=== PATIENT | female | born 1960 | race Caucasian/White ===

== ENCOUNTER 2017-08-20 08:02 | Inpatient (IN) | payer SELFPAY ==
[2017-08-20] MEDS ORDERED: NS 0.9% 1000 ML*IV.FLUID IV ONE (08:18)
[2017-08-20] MEDS ORDERED: cefTRIAXone(*) 1 GM in NS 0.9% 50 ML* 50 ML IVPB ONE (08:25)
[2017-08-20] MEDS ORDERED: Azithromycin IV(*) 500 MG in NS 0.9% 250 ML* 250 ML IVPB ONE (08:25)
[2017-08-20] MEDS: Albuterol/Ipratropium NEB.SOL* Albuterol 2.5 MG/Ipratropium 0.5 MG 3 ML INH ONE ×2 (08:39→08:46)
--- NOTE | 2017-08-20 08:58 | RAD ---
Indication: Cough, shortness of breath, fever. Tobacco use. Comparison: January 20, 2014 Technique: Upright AP 0849 hours Report: Elevated lung volumes. Patchy bilateral alveolar opacities including at the anterior segment of the RIGHT upper lobe approximating the minor fissure and at the bilateral lung bases. Negative for pleural effusion or pneumothorax. The heart, pulmonary vasculature, and mediastinal contours are unremarkable. IMPRESSION: The constellation of findings given the clinical context is most consistent with bronchopneumonia.
[2017-08-20 09:04] LABS: ABS Basophils 0.1 10^3/ul (0-0.2); ABS Eosinophils 0.1 10^3/ul (0-0.6); ABS Lymphocytes 1.3 10^3/ul (1.0-4.8); ABS Monocytes 1.3 10^3/ul (0-0.8); ABS Neutrophils 8.4 10^3/ul (1.5-7.7); ABS Nucleated RBC 0 10^3/ul; Eosinophil % 0.5 % (0-6); Hematocrit 35 % (35-47); Hemoglobin 11.6 g/dl (12.0-16.0); Lymphocyte % 11.8 % (25-47); Mean Corpuscular HGB Conc 33 g/dl (31-36); Mean Corpuscular Hemoglobin 28 pg (27-31); Mean Corpuscular Volume 84 fL (80-97); Mean Platelet Volume 8.5 um3 (7.4-10.4); Nucleated Red Blood Cells % 0.1; Platelet Count 320 10^3/ul (150-450); Red Blood Count 4.15 10^6/ul (4.0-5.4); Red Cell Distribution Width 14 % (10.5-15); White Blood Count 11.2 10^3/ul (3.5-10.8)
[2017-08-20 09:14] LABS: INR 1.07 (0.77-1.02)
[2017-08-20 09:19] LABS: EGFR Non-African American 80.6 (>60)
[2017-08-20] MEDS ORDERED: Aspirin 81 mg CHEW TAB* 81 MG TAB.CHEW PO ONE (09:26)
[2017-08-20] MEDS ORDERED: cefTRIAXone 1000 MG SYRINGE IVPB ONCE (in NaCl) IVPB ONE ×2 (10:00)
[2017-08-20] MEDS ORDERED: Iohexol 350* (CONTRAST) 500 ML MDV IV ONE (10:39)
[2017-08-20] MEDS ORDERED: traMADol TAB* 50 MG PO PRN (10:46)
[2017-08-20] MEDS ORDERED: Nicotine Inhaler* 10 MG AMP INH PRN (10:54)
[2017-08-20] MEDS ORDERED: Mouth Piece, Nicotine* 1 EACH CARTRIDGE INH PRN (10:54)
[2017-08-20 10:59] LABS: Urine Appearance Clear; Urine Blood Negative (Negative); Urine Color Yellow; Urine Ketones Negative (Negative); Urine Protein Negative (Negative); Urine Specific Gravity 1.004 (1.010-1.030); Urine Urobilinogen Negative (Negative)
--- NOTE | 2017-08-20 11:52 | ED ---
Nella Stock Gabriel, scribed for Danny Vincent MD on 08/20/17 at 0821 . Influenza-Like Illness - HPI Summary HPI Summary: This patient is a 57 year old F presenting to [facility] with a chief complaint of a flu like illness since 08-14-17. The patient rates the pain 8/10 in severity. Patient reports SOB, cough, chills, fever, myalgia, chest heaviness. Pt denies sore throat, ABD pain, v/d, edema, and wheezing. Pt states she had a stomach flu with diarrhea at first but now it has gotten into her lungs. - History of Current Complaint Chief Complaint: EDFluSymptoms Time Seen by Provider: 08/20/17 08:12 Hx Obtained From: Patient Onset/Duration: Lasting Weeks - 1, Still Present Severity: Moderate Associated Signs & Symptoms: Negative - sore throat, ABD pain, v/d, edema, and wheezing., Fever, F/C, Myalgia, Cough - Allergy/Home Medications Allergies/Adverse Reactions: Allergies Allergy/AdvReac Type Severity Reaction Status Date / Time ciprofloxacin [From Cipro] Allergy Hives Verified 08/20/17 08:18 erythromycin base Allergy Hives Verified 08/20/17 08:18 CILLINS Allergy Unknown Unknown Uncoded 05/09/15 11:28 Reaction Details Home Medications: Home Medications NK [No Home Medications Reported] 08/20/17 [History Confirmed 08/20/17] PMH/Surg Hx/FS Hx/Imm Hx Endocrine/Hematology History: Denies: Hx Diabetes, Hx Thyroid Disease Cardiovascular History: Reports: Hx Rheumatic Fever Denies: Hx Hypertension Respiratory History: Reports: Hx Pneumonia Denies: Hx Asthma, Hx Chronic Obstructive Pulmonary Disease (COPD) GI History: Denies: Hx Ulcer Neurological History: Reports: Hx Migraine - Surgical History Surgery Procedure, Year, and Place: TUBAL LIGATION, RIGHT GROIN 4 LYMPH NODES REMOVED Infectious Disease History: No Infectious Disease History: Denies: Hx Hepatitis, Hx Human Immunodeficiency Virus (HIV), History Other Infectious Disease, Traveled Outside the [place] in Last 30 Days - Family History Known Family History: Positive: Cardiac Disease, Diabetes Family History: cancer - Social History Alcohol Use: None Substance Use Type: Reports: None Smoking Status (MU): Current Every Day Smoker Type: Cigarettes Amount Used/How Often: 1/2 ppd Length of Time of Smoking/Using Tobacco: 20 Have You Smoked in the Last Year: Yes Review of Systems Positive: Fever, Chills Negative: Sore Throat Positive: Chest Pain - heaviness Respiratory: Negative - wheeze Positive: Shortness Of Breath, Cough Negative: Abdominal Pain, Vomiting, Diarrhea Negative: Edema All Other Systems Reviewed And Are Negative: Yes Physical Exam - Summary Physical Exam Summary: General: mild respiratory distress Skin: warm, color reflects adequate perfusion, dry Head: normal Eyes: EOMI, ABIGAIL ENT: positive rhinorrhea Neck: supple, nontender Respiratory: CTA, breath sounds present, lungs are clear Cardiovascular: RRR Abdomen: soft, nontender Bowel: present Musculoskeletal: normal, strength/ROM intact Neurological: normal, sensory/motor intact, A&O x3 Psychological: affect/mood appropriate Triage Information Reviewed: Yes Vital Signs On Initial Exam: Initial Vitals Temp Pulse Resp BP Pulse Ox 97.8 F 77 24 100/59 95 08/20/17 08:03 08/20/17 08:03 08/20/17 08:03 08/20/17 08:03 08/20/17 08:03 Vital Signs Reviewed: Yes Diagnostics - Vital Signs Vital Signs Temp Pulse Resp BP Pulse Ox 08/20/17 08:03 97.8 F 77 24 100/59 95 - Laboratory Lab Results: Lab Results 08/20/17 08/20/17 08/20/17 Range/Units 08:30 08:30 08:30 WBC 11.2 H (3.5-10.8) 10^3/ul RBC 4.15 (4.0-5.4) 10^6/ul Hgb 11.6 L (12.0-16.0) g/dl Hct 35 (35-47) % MCV 84 (80-97) fL MCH 28 (27-31) pg MCHC 33 (31-36) g/dl RDW 14 (10.5-15) % Plt Count 320 (150-450) 10^3/ul MPV 8.5 (7.4-10.4) um3 Neut % (Auto) 75.5 (38-83) % Lymph % (Auto) 11.8 L (25-47) % [place] % (Auto) 11.6 H (0-7) % Eos % (Auto) 0.5 (0-6) % Baso % (Auto) 0.6 (0-2) % Absolute Neuts (auto) 8.4 H (1.5-7.7) 10^3/ul Absolute Lymphs (auto) 1.3 (1.0-4.8) 10^3/ul Absolute Monos (auto) 1.3 H (0-0.8) 10^3/ul Absolute Eos (auto) 0.1 (0-0.6) 10^3/ul Absolute Basos (auto) 0.1 (0-0.2) 10^3/ul Absolute Nucleated RBC 0 10^3/ul Nucleated RBC % 0.1 INR (Anticoag Therapy) 1.07 H (0.77-1.02) APTT 27.8 (26.0-36.3) seconds D-Dimer, Quantitative 525 H (Less Than 230) ng/mL Sodium 133 L (139-145) mmol/L Potassium 3.2 L (3.5-5.0) mmol/L Chloride 100 L (101-111) mmol/L Carbon Dioxide 21 L (22-32) mmol/L Anion Gap 12 H (2-11) mmol/L BUN 9 (6-24) mg/dL Creatinine 0.74 (0.51-0.95) mg/dL Est GFR ( Amer) 103.7 (>60) Est GFR (Non-Af Amer) 80.6 (>60) BUN/Creatinine Ratio 12.2 (8-20) Glucose 142 H (70-100) mg/dL Hemoglobin A1c (4.0-5.6) % Lactic Acid (0.5-2.0) mmol/L Calcium 8.8 (8.6-10.3) mg/dL Total Bilirubin 0.80 (0.2-1.0) mg/dL AST 18 (13-39) U/L ALT 14 (7-52) U/L Alkaline Phosphatase 68 (34-104) U/L Total Creatine Kinase 263 H (10-223) U/L Troponin I 0.10 H* (<0.04) ng/mL C-Reactive Protein 165.15 H (< 5.00) mg/L B-Natriuretic Peptide ( - 100) pg/mL Total Protein 6.7 (6.4-8.9) g/dL Albumin 3.5 (3.2-5.2) g/dL Globulin 3.2 (2-4) g/dL Albumin/Globulin Ratio 1.1 (1-3) Procalcitonin (<0.6) ng/mL Urine Color Urine Appearance Urine pH (5-9) Ur Specific [place] (1.010-1.030) Urine Protein (Negative) Urine Ketones (Negative) Urine Blood (Negative) Urine Nitrate (Negative) Urine Bilirubin (Negative) Urine Urobilinogen (Negative) Ur Leukocyte Esterase (Negative) Urine Glucose (Negative) Influenza A (Rapid) (Negative) Influenza B (Rapid) (Negative) 08/20/17 08/20/17 08/20/17 Range/Units 08:30 08:30 08:30 WBC (3.5-10.8) 10^3/ul RBC (4.0-5.4) 10^6/ul Hgb (12.0-16.0) g/dl Hct (35-47) % MCV (80-97) fL MCH (27-31) pg MCHC (31-36) g/dl RDW (10.5-15) % Plt Count (150-450) 10^3/ul MPV (7.4-10.4) um3 Neut % (Auto) (38-83) % Lymph % (Auto) (25-47) % [place] % (Auto) (0-7) % Eos % (Auto) (0-6) % Baso % (Auto) (0-2) % Absolute Neuts (auto) (1.5-7.7) 10^3/ul Absolute Lymphs (auto) (1.0-4.8) 10^3/ul Absolute Monos (auto) (0-0.8) 10^3/ul Absolute Eos (auto) (0-0.6) 10^3/ul Absolute Basos (auto) (0-0.2) 10^3/ul Absolute Nucleated RBC 10^3/ul Nucleated RBC % INR (Anticoag Therapy) (0.77-1.02) APTT (26.0-36.3) seconds D-Dimer, Quantitative (Less Than 230) ng/mL Sodium (139-145) mmol/L Potassium (3.5-5.0) mmol/L Chloride (101-111) mmol/L Carbon Dioxide (22-32) mmol/L Anion Gap (2-11) mmol/L BUN (6-24) mg/dL Creatinine (0.51-0.95) mg/dL Est GFR ( Amer) (>60) Est GFR (Non-Af Amer) (>60) BUN/Creatinine Ratio (8-20) Glucose (70-100) mg/dL Hemoglobin A1c (4.0-5.6) % Lactic Acid 0.9 (0.5-2.0) mmol/L Calcium (8.6-10.3) mg/dL Total Bilirubin (0.2-1.0) mg/dL AST (13-39) U/L ALT (7-52) U/L Alkaline Phosphatase (34-104) U/L Total Creatine Kinase (10-223) U/L Troponin I (<0.04) ng/mL C-Reactive Protein (< 5.00) mg/L B-Natriuretic Peptide 201 H ( - 100) pg/mL Total Protein (6.4-8.9) g/dL Albumin (3.2-5.2) g/dL Globulin (2-4) g/dL Albumin/Globulin Ratio (1-3) Procalcitonin 0.1 (<0.6) ng/mL Urine Color Urine Appearance Urine pH (5-9) Ur Specific [place] (1.010-1.030) Urine Protein (Negative) Urine Ketones (Negative) Urine Blood (Negative) Urine Nitrate (Negative) Urine Bilirubin (Negative) Urine Urobilinogen (Negative) Ur Leukocyte Esterase (Negative) Urine Glucose (Negative) Influenza A (Rapid) (Negative) Influenza B (Rapid) (Negative) 08/20/17 08/20/17 08/20/17 Range/Units 08:30 09:02 10:40 WBC (3.5-10.8) 10^3/ul RBC (4.0-5.4) 10^6/ul Hgb (12.0-16.0) g/dl Hct (35-47) % MCV (80-97) fL MCH (27-31) pg MCHC (31-36) g/dl RDW (10.5-15) % Plt Count (150-450) 10^3/ul MPV (7.4-10.4) um3 Neut % (Auto) (38-83) % Lymph % (Auto) (25-47) % [place] % (Auto) (0-7) % Eos % (Auto) (0-6) % Baso % (Auto) (0-2) % Absolute Neuts (auto) (1.5-7.7) 10^3/ul Absolute Lymphs (auto) (1.0-4.8) 10^3/ul Absolute Monos (auto) (0-0.8) 10^3/ul Absolute Eos (auto) (0-0.6) 10^3/ul Absolute Basos (auto) (0-0.2) 10^3/ul Absolute Nucleated RBC 10^3/ul Nucleated RBC % INR (Anticoag Therapy) (0.77-1.02) APTT (26.0-36.3) seconds D-Dimer, Quantitative (Less Than 230) ng/mL Sodium (139-145) mmol/L Potassium (3.5-5.0) mmol/L Chloride (101-111) mmol/L Carbon Dioxide (22-32) mmol/L Anion Gap (2-11) mmol/L BUN (6-24) mg/dL Creatinine (0.51-0.95) mg/dL Est GFR ( Amer) (>60) Est GFR (Non-Af Amer) (>60) BUN/Creatinine Ratio (8-20) Glucose (70-100) mg/dL Hemoglobin A1c 6.0 H (4.0-5.6) % Lactic Acid (0.5-2.0) mmol/L Calcium (8.6-10.3) mg/dL Total Bilirubin (0.2-1.0) mg/dL AST (13-39) U/L ALT (7-52) U/L Alkaline Phosphatase (34-104) U/L Total Creatine Kinase (10-223) U/L Troponin I (<0.04) ng/mL C-Reactive Protein (< 5.00) mg/L B-Natriuretic Peptide ( - 100) pg/mL Total Protein (6.4-8.9) g/dL Albumin (3.2-5.2) g/dL Globulin (2-4) g/dL Albumin/Globulin Ratio (1-3) Procalcitonin (<0.6) ng/mL Urine Color Yellow Urine Appearance Clear Urine pH 5.0 (5-9) Ur Specific [place] 1.004 L (1.010-1.030) Urine Protein Negative (Negative) Urine Ketones Negative (Negative) Urine Blood Negative (Negative) Urine Nitrate Negative (Negative) Urine Bilirubin Negative (Negative) Urine Urobilinogen Negative (Negative) Ur Leukocyte Esterase Negative (Negative) Urine Glucose Negative (Negative) Influenza A (Rapid) Negative (Negative) Influenza B (Rapid) Negative (Negative) Result Diagrams: 08/20/17 08:30 08/20/17 08:30 Lab Statement: Any lab studies that have been ordered have been reviewed, and results considered in the medical decision making process. - Radiology CXR Radiology Interpretation Completed By: Radiologist - The constellation of findings given the clinical context is most consistent with bronchopneumonia. ED physician has reviewed this radiology report. - EKG 0900 Cardiac Rate: Bradycardia EKG Rhythm: Sinus Rhythm - at 73 bpm EKG Interpretation: minimal ST elevations in the anterior leads that are concave Flu Symptom Course/Dx - Course Course Of Treatment: ADMIT HOSPITALIST Assessment/Plan: Medications reviewed. Allergies noted. - Diagnoses Provider Diagnoses: Pneumonia, Elevated troponin - Physician Notifications Discussed Care Of Patient With: Jane Orta Time Discussed With Above Provider: 09:42 Instructed by Provider To: Admit As Inpatient Discharge - Sign-Out/Discharge Documenting (check all that apply): Discharge - ADMIT HOSPITALIST - Discharge Plan Condition: Stable Disposition: ADMITTED TO [facility] - Billing Disposition and Condition Condition: STABLE Disposition: [facility] [place] The documentation as recorded by the Nella buitrago Gabriel accurately reflects the service I personally performed and the decisions made by , Danny Vincent MD.
--- NOTE | 2017-08-20 12:41 | RAD ---
HISTORY: Cough, pneumonia, evaluate for PE COMPARISONS: None TECHNIQUE: Multiple contiguous axial CT scans of the chest were obtained without intravenous contrast. Coronal and sagittal multiplanar reformations are also submitted for review. FINDINGS: NECK AND THYROID: The lower neck and thyroid are unremarkable. CHEST WALL: There is no lower cervical, axillary, or supraclavicular lymphadenopathy by size criteria. HEART AND PERICARDIUM: The heart is unremarkable. AORTA AND PULMONARY VASCULATURE: There is no pulmonary arterial filling defect to suggest pulmonary embolism. There is no linear filling defect within the aorta to suggest aortic dissection. MEDIASTINUM: There is an enlarged subcarinal lymph node measuring up to 2.4 cm in short axis. KASIA: There are enlarged bilateral hilar lymph nodes measuring up to 1.8 cm in short axis. AIRWAY AND ESOPHAGUS: The airway is unremarkable, without endobronchial filling defect. The esophagus is grossly normal. LUNG PARENCHYMA: There is biapical centrilobular emphysematous change. There is multifocal centrilobular nodularity within all lobes. There is no focal consolidation of the left upper lobe PLEURA: There are small bilateral pleural effusions. UPPER ABDOMEN: The upper abdomen is unremarkable. BONES AND SOFT TISSUES: Degenerative changes are noted OTHER: None. IMPRESSION: 1. NO PULMONARY ARTERIAL FILLING DEFECT TO SUGGEST PULMONARY EMBOLISM. 2. THERE IS MULTIFOCAL CONSOLIDATION OF THE LEFT UPPER LOBE WITH MULTIFOCAL CENTRILOBULAR NODULARITY THROUGHOUT BOTH LUNGS, SUGGESTIVE OF AN INFLAMMATORY OR INFECTIOUS PROCESS. AIRWAY SPREAD OF NEOPLASM IS ALSO WITHIN THE DIFFERENTIAL. RECOMMEND FOLLOW-UP UNTIL RESOLUTION TO EXCLUDE UNDERLYING PULMONARY PARENCHYMAL PATHOLOGY. 3. HILAR AND MEDIASTINAL LYMPHADENOPATHY. 4. SMALL BILATERAL PLEURAL EFFUSIONS. 5. EMPHYSEMA
[2017-08-20] MEDS: NS 0.9% 1000 ML* 1,000 ML IV SCH ×2 (13:06→23:56)
[2017-08-20] MEDS: Heparin VIAL(*) 5000 UNITS/ML VIAL (FIVE THOUSAND) SUBCUT SCH ×2 (13:06→22:11)
[2017-08-20] MEDS: Acetaminophen TAB* 325 MG PO PRN ×2 (13:59→22:11)
--- NOTE | 2017-08-20 14:03 | HP ---
HISTORY AND PHYSICAL: DATE OF ADMISSION: 08/20/17 PRIMARY CARE PROVIDER: None. CHIEF COMPLAINT: Shortness of breath. HISTORY OF PRESENT ILLNESS: Ms. Coffey is a 57-year-old female who has no past medical history as she has not seen a provider in quite sometime, who presents to the emergency room with complaints of shortness of breath. The patient states that she first developed an illness on 08/09/17. At that point, she developed what she described as a flu-like illness with body aches and diarrhea. She also complained of fevers and chills with that. She states that those all resolved within 3 days. On 08/14/17, she then began to develop cough and shortness of breath. She has been bringing up very discolored sputum. Over the last 6 days, she has had progressive shortness of breath. Despite feeling unwell with the shortness of breath, she did manage to work for the last 7 days in [employer] at [employer]. She ultimately presented today as things were not getting any better. She does state that she has had a couple of days of feeling quite warm. PAST MEDICAL HISTORY: None. PAST SURGICAL HISTORY: 1. Tubal ligation. 2. Lymph node removal from the pelvis. MEDICATIONS: None. ALLERGIES: CIPRO, PENICILLIN and ERYTHROMYCIN. FAMILY HISTORY: Mom is from complications of diabetes. Dad has a history of pancreatic cancer. SOCIAL HISTORY: The patient is a current smoker of one-half pack per day for approximately the last 25 years. She does state that she has not smoked in last 5 to 6 days. She indicates Artem Cotton who is her boyfriend is her healthcare proxy. REVIEW OF SYSTEMS: A complete 11-system review of systems is obtained. Pertinent positives and negatives are as per HPI and in addition, the patient does complain of chest discomfort, most notably with coughing. She also states that she has some back discomfort that again worsens with cough. She also has felt some lightheadedness with coughing. The rest of the review of systems was negative. PHYSICAL EXAMINATION GENERAL: The patient is a well-developed middle aged female seen sitting up in the stretcher, appearing mildly ill, but in no acute distress. VITAL SIGNS: Blood pressure 107/64, pulse 69, respirations 16, temp 97.8, O2 sat 98% on room air. HEENT: Pupils are equal and round. Extraocular muscles are intact. Oropharynx is clear. Oral mucosa is moist. There is no submandibular, cervical or supraclavicular adenopathy. Thyroid is not enlarged. No thyroid nodules are noted. PULMONARY: Breath sounds are diminished in all lung tucker. There are a few crackles to the right base. CARDIAC: Normal S1, S2. Regular rate and rhythm. I do not appreciate any murmurs. ABDOMEN: Bowel sounds present. Abdomen is soft, nontender, nondistended. MUSCULOSKELETAL: There is no cyanosis or clubbing of the digits. There is full active range of motion of all 4 extremities. SKIN: Warm and dry. There are no rashes. NEUROLOGIC: Cranial nerves II through XII are grossly intact. Sensation is intact to light touch throughout. Strength is 5/5 and symmetric in both upper and lower extremities bilaterally. PSYCH: The patient is alert. She is oriented x3. Affect appears appropriate. LABORATORY DATA: WBC 11.2, hemoglobin 11.6, hematocrit 35, platelets 320,000. INR 1.07, D-dimer 525. Sodium 133, potassium 3.2, chloride 100, CO2 of 21, BUN 9, creatinine 0.74, glucose 142, lactic acid 0.9, calcium 8.8, bilirubin 0.8 , AST 18, ALT 14, alk phos 68. CPK 263. Troponin 0.1. CRP 165.15, BNP 201, procalcitonin 0.1. Influenza A and B negative. EKG reveals normal sinus rhythm with minimal ST elevation in the anterior leads. Chest x-ray: The constellation of findings of patchy bilateral alveolar opacities including at the anterior segment of the right upper lobe approximating the minor fissure and at the bilateral lung bases is most consistent with bronchopneumonia. ASSESSMENT AND PLAN: Ms. Coffey is a 57-year-old female who has no past medical history outside of ongoing tobacco abuse who presents to the emergency room with complaints of progressive shortness of breath, cough and sputum production, is being admitted for treatment of a community acquired pneumonia. 1. Community acquired pneumonia: Community acquired pneumonia seems like the most likely diagnosis at this point; however, it is possible this could represent a post influenza pneumonia given her complaints of illness approximately 1 week prior to the onset of these symptoms. The patient will have a sputum culture obtained. She will also have urine sent for Strep pneumoniae and Legionella antigens. She will continue on ceftriaxone and azithromycin that has been initiated by the ER provider. Of note, the patient does have a reported allergy to ERYTHROMYCIN; however, she appears to have tolerated the azithromycin without any issues. 2. Elevated troponin: The patient does complain of chest pain. This is mostly with coughing. I do not believe that this likely represents an acute coronary syndrome; however, followup troponin will be obtained at 11:30 this morning. Followup EKG will also be obtained. I suspect this more likely represents demand ischemia. She will benefit from an echocardiogram and stress test in the near future. Perhaps this can be considered once her insurance is in place. An additional potential cause could be pulmonary embolism especially given her elevated D-dimer. A CTA of the chest has been ordered. 3. Hyponatremia and hypokalemia: I suspect this is secondary to volume depletion from being ill over the last couple of weeks. She will receive normal saline at 100 mL/hour. Followup BMP will be obtained tomorrow morning. 4. Tobacco abuse: The patient has not smoked for the last 5 to 6 days. At this point, I will prescribe a nicotine inhaler to be used for cravings. We will continue to encourage smoking cessation now that she has gone several days without smoking, this may be a good time for her to stop. 5. DVT prophylaxis: According to the Adult Thrombosis Prophylaxis Risk Factor Assessment Guide, the patient has a total risk factor score of 2 making her moderate risk, heparin 5000 units subcutaneous q.8 hours will be utilized. 6. Code status is full. Again, the patient indicates that her boyfriend Artem Cotton is her healthcare proxy. TIME SPENT: Sixty five minutes were spent admitting this patient. [id number]/[facility] #: [id number] MISSY
[2017-08-21 05:46] LABS: Hematocrit 30 % (35-47); Hemoglobin 10.1 g/dl (12.0-16.0); Mean Corpuscular HGB Conc 34 g/dl (31-36); Mean Corpuscular Hemoglobin 28 pg (27-31); Mean Corpuscular Volume 84 fL (80-97); Mean Platelet Volume 8.4 um3 (7.4-10.4); Platelet Count 278 10^3/ul (150-450); Red Blood Count 3.56 10^6/ul (4.0-5.4); Red Cell Distribution Width 14 % (10.5-15); White Blood Count 8.7 10^3/ul (3.5-10.8)
[2017-08-21 06:04] LABS: EGFR Non-African American 83.2 (>60)
[2017-08-21] MEDS: Heparin VIAL(*) 5000 UNITS/ML VIAL (FIVE THOUSAND) SUBCUT SCH ×3 (06:09→21:34)
[2017-08-21] MEDS ORDERED: cefTRIAXone VIAL(*) 1,000 MG VIAL IVPB SCH (10:00)
[2017-08-21] MEDS ORDERED: NS 0.9% 250 ML* 250 ML ONE (10:14)
[2017-08-21] MEDS: NS 0.9% 1000 ML* 1,000 ML IV SCH ×2 (10:20→21:39)
[2017-08-21] MEDS: cefTRIAXone 1000 MG SYRINGE IVPB Q24H (in NaCl) IVPB SCH ×2 (10:20)
[2017-08-21] MEDS: Acetaminophen TAB* 325 MG PO PRN (10:28)
[2017-08-21] MEDS: Azithromycin IV(*) 500 MG in NS 0.9% 250 ML* 250 ML IVPB SCH (11:00)
[2017-08-21] MEDS ORDERED: Potassium Chlor TAB* 20 MEQ TAB.ER PO ONE (17:02)
--- NOTE | 2017-08-21 17:10 | PN ---
Subjective Date of Service: 08/21/17 Interval History: Patient seen and examined. Appears fatigued, states she does feel a little better, but still has difficult coughing episodes. No acute SOB, no current chest pain. Denies n/v/d. No fevers or chills. Objective Active Medications: Acetaminophen (Tylenol Tab*) 650 mg PO Q6H PRN PRN Reason: PAIN Last Admin: 08/21/17 10:28 Dose: 650 mg Albuterol/Ipratropium (Duoneb (Albuterol 2.5 Mg/Ipratropium 0.5 Mg)) 1 neb INH [id number] AWAKE LEVI Device (Nicotine Mouth Piece*) 1 each INH .USE WITH NICOTROL PRN PRN Reason: CRAVING Guaifenesin/Dextromethorphan (Robitussin Dm*) 10 ml PO Q4H PRN PRN Reason: COUGH Heparin Sodium (Porcine) (Heparin Vial(*)) 5,000 units SUBCUT Q8HR [facility] Last Admin: 08/21/17 14:02 Dose: 5,000 units Azithromycin 500 mg/ Sodium (Chloride) 250 mls @ 250 mls/hr IVPB Q24H [facility] Last Admin: 08/21/17 11:00 Dose: 250 mls/hr Sodium Chloride (Ns 0.9% 1000 Ml*) 1,000 mls @ 100 mls/hr IV PER RATE [facility] Last Admin: 08/21/17 10:20 Dose: 100 mls/hr Ceftriaxone Sodium 1,000 mg/ (Sodium Chloride) 10 mls @ 40 mls/hr IVPB Q24H [facility] Last Admin: 08/21/17 10:20 Dose: 40 mls/hr Nicotine (Nicotine Inhaler*) 10 mg INH Q2H PRN PRN Reason: CRAVING Tramadol HCl (Ultram*) 50 mg PO Q8H PRN PRN Reason: PAIN Vital Signs - 8 hr 08/21/17 08/21/17 10:44 13:40 Temperature 97.9 F 97.6 F Pulse Rate 71 60 Respiratory 20 16 Rate Blood Pressure 111/57 112/61 (mmHg) O2 Sat by Pulse 95 97 Oximetry Oxygen Devices in Use Now: None Appearance: Alert, tired, NAD Ears/Nose/Mouth/Throat: NL Teeth, Lips, Gums, Mucous Membranes Moist Neck: NL Appearance and Movements; NL JVP, Trachea Midline Respiratory: Symmetrical Chest Expansion and Respiratory Effort, - - diminished half up the bases, no wheeze, no rales Cardiovascular: NL Sounds; No Murmurs; No JVD, RRR Abdominal: NL Sounds; No Tenderness; No Distention Extremities: No Edema Neurological: Alert and Oriented x 3, NL Gait Nutrition: Taking PO's Result Diagrams: 08/21/17 04:54 08/21/17 04:54 Additional Lab and Data: Lab Results 08/20/17 08/20/17 08/20/17 Range/Units 08:30 08:30 08:30 WBC 11.2 H (3.5-10.8) 10^3/ul RBC 4.15 (4.0-5.4) 10^6/ul Hgb 11.6 L (12.0-16.0) g/dl Hct 35 (35-47) % MCV 84 (80-97) fL MCH 28 (27-31) pg MCHC 33 (31-36) g/dl RDW 14 (10.5-15) % Plt Count 320 (150-450) 10^3/ul MPV 8.5 (7.4-10.4) um3 Neut % (Auto) 75.5 (38-83) % Lymph % (Auto) 11.8 L (25-47) % Clarke % (Auto) 11.6 H (0-7) % Eos % (Auto) 0.5 (0-6) % Baso % (Auto) 0.6 (0-2) % Absolute Neuts (auto) 8.4 H (1.5-7.7) 10^3/ul Absolute Lymphs (auto) 1.3 (1.0-4.8) 10^3/ul Absolute Monos (auto) 1.3 H (0-0.8) 10^3/ul Absolute Eos (auto) 0.1 (0-0.6) 10^3/ul Absolute Basos (auto) 0.1 (0-0.2) 10^3/ul Absolute Nucleated RBC 0 10^3/ul Nucleated RBC % 0.1 INR (Anticoag Therapy) 1.07 H (0.77-1.02) APTT 27.8 (26.0-36.3) seconds D-Dimer, Quantitative 525 H (Less Than 230) ng/mL Sodium 133 L (139-145) mmol/L Potassium 3.2 L (3.5-5.0) mmol/L Chloride 100 L (101-111) mmol/L Carbon Dioxide 21 L (22-32) mmol/L Anion Gap 12 H (2-11) mmol/L BUN 9 (6-24) mg/dL Creatinine 0.74 (0.51-0.95) mg/dL Est GFR ( Amer) 103.7 (>60) Est GFR (Non-Af Amer) 80.6 (>60) BUN/Creatinine Ratio 12.2 (8-20) Glucose 142 H (70-100) mg/dL Hemoglobin A1c (4.0-5.6) % Lactic Acid (0.5-2.0) mmol/L Calcium 8.8 (8.6-10.3) mg/dL Total Bilirubin 0.80 (0.2-1.0) mg/dL AST 18 (13-39) U/L ALT 14 (7-52) U/L Alkaline Phosphatase 68 (34-104) U/L Total Creatine Kinase 263 H (10-223) U/L Troponin I 0.10 H* (<0.04) ng/mL C-Reactive Protein 165.15 H (< 5.00) mg/L B-Natriuretic Peptide ( - 100) pg/mL Total Protein 6.7 (6.4-8.9) g/dL Albumin 3.5 (3.2-5.2) g/dL Globulin 3.2 (2-4) g/dL Albumin/Globulin Ratio 1.1 (1-3) Procalcitonin (<0.6) ng/mL Urine Color Urine Appearance Urine pH (5-9) Ur Specific [place] (1.010-1.030) Urine Protein (Negative) Urine Ketones (Negative) Urine Blood (Negative) Urine Nitrate (Negative) Urine Bilirubin (Negative) Urine Urobilinogen (Negative) Ur Leukocyte Esterase (Negative) Urine Glucose (Negative) Influenza A (Rapid) (Negative) Influenza B (Rapid) (Negative) 08/20/17 08/20/17 08/20/17 Range/Units 08:30 08:30 08:30 WBC (3.5-10.8) 10^3/ul RBC (4.0-5.4) 10^6/ul Hgb (12.0-16.0) g/dl Hct (35-47) % MCV (80-97) fL MCH (27-31) pg MCHC (31-36) g/dl RDW (10.5-15) % Plt Count (150-450) 10^3/ul MPV (7.4-10.4) um3 Neut % (Auto) (38-83) % Lymph % (Auto) (25-47) % Clarke % (Auto) (0-7) % Eos % (Auto) (0-6) % Baso % (Auto) (0-2) % Absolute Neuts (auto) (1.5-7.7) 10^3/ul Absolute Lymphs (auto) (1.0-4.8) 10^3/ul Absolute Monos (auto) (0-0.8) 10^3/ul Absolute Eos (auto) (0-0.6) 10^3/ul Absolute Basos (auto) (0-0.2) 10^3/ul Absolute Nucleated RBC 10^3/ul Nucleated RBC % INR (Anticoag Therapy) (0.77-1.02) APTT (26.0-36.3) seconds D-Dimer, Quantitative (Less Than 230) ng/mL Sodium (139-145) mmol/L Potassium (3.5-5.0) mmol/L Chloride (101-111) mmol/L Carbon Dioxide (22-32) mmol/L Anion Gap (2-11) mmol/L BUN (6-24) mg/dL Creatinine (0.51-0.95) mg/dL Est GFR ( Amer) (>60) Est GFR (Non-Af Amer) (>60) BUN/Creatinine Ratio (8-20) Glucose (70-100) mg/dL Hemoglobin A1c (4.0-5.6) % Lactic Acid 0.9 (0.5-2.0) mmol/L Calcium (8.6-10.3) mg/dL Total Bilirubin (0.2-1.0) mg/dL AST (13-39) U/L ALT (7-52) U/L Alkaline Phosphatase (34-104) U/L Total Creatine Kinase (10-223) U/L Troponin I (<0.04) ng/mL C-Reactive Protein (< 5.00) mg/L B-Natriuretic Peptide 201 H ( - 100) pg/mL Total Protein (6.4-8.9) g/dL Albumin (3.2-5.2) g/dL Globulin (2-4) g/dL Albumin/Globulin Ratio (1-3) Procalcitonin 0.1 (<0.6) ng/mL Urine Color Urine Appearance Urine pH (5-9) Ur Specific [place] (1.010-1.030) Urine Protein (Negative) Urine Ketones (Negative) Urine Blood (Negative) Urine Nitrate (Negative) Urine Bilirubin (Negative) Urine Urobilinogen (Negative) Ur Leukocyte Esterase (Negative) Urine Glucose (Negative) Influenza A (Rapid) (Negative) Influenza B (Rapid) (Negative) 08/20/17 08/20/17 08/20/17 Range/Units 08:30 09:02 10:40 WBC (3.5-10.8) 10^3/ul RBC (4.0-5.4) 10^6/ul Hgb (12.0-16.0) g/dl Hct (35-47) % MCV (80-97) fL MCH (27-31) pg MCHC (31-36) g/dl RDW (10.5-15) % Plt Count (150-450) 10^3/ul MPV (7.4-10.4) um3 Neut % (Auto) (38-83) % Lymph % (Auto) (25-47) % Clarke % (Auto) (0-7) % Eos % (Auto) (0-6) % Baso % (Auto) (0-2) % Absolute Neuts (auto) (1.5-7.7) 10^3/ul Absolute Lymphs (auto) (1.0-4.8) 10^3/ul Absolute Monos (auto) (0-0.8) 10^3/ul Absolute Eos (auto) (0-0.6) 10^3/ul Absolute Basos (auto) (0-0.2) 10^3/ul Absolute Nucleated RBC 10^3/ul Nucleated RBC % INR (Anticoag Therapy) (0.77-1.02) APTT (26.0-36.3) seconds D-Dimer, Quantitative (Less Than 230) ng/mL Sodium (139-145) mmol/L Potassium (3.5-5.0) mmol/L Chloride (101-111) mmol/L Carbon Dioxide (22-32) mmol/L Anion Gap (2-11) mmol/L BUN (6-24) mg/dL Creatinine (0.51-0.95) mg/dL Est GFR ( Amer) (>60) Est GFR (Non-Af Amer) (>60) BUN/Creatinine Ratio (8-20) Glucose (70-100) mg/dL Hemoglobin A1c 6.0 H (4.0-5.6) % Lactic Acid (0.5-2.0) mmol/L Calcium (8.6-10.3) mg/dL Total Bilirubin (0.2-1.0) mg/dL AST (13-39) U/L ALT (7-52) U/L Alkaline Phosphatase (34-104) U/L Total Creatine Kinase (10-223) U/L Troponin I (<0.04) ng/mL C-Reactive Protein (< 5.00) mg/L B-Natriuretic Peptide ( - 100) pg/mL Total Protein (6.4-8.9) g/dL Albumin (3.2-5.2) g/dL Globulin (2-4) g/dL Albumin/Globulin Ratio (1-3) Procalcitonin (<0.6) ng/mL Urine Color Yellow Urine Appearance Clear Urine pH 5.0 (5-9) Ur Specific [place] 1.004 L (1.010-1.030) Urine Protein Negative (Negative) Urine Ketones Negative (Negative) Urine Blood Negative (Negative) Urine Nitrate Negative (Negative) Urine Bilirubin Negative (Negative) Urine Urobilinogen Negative (Negative) Ur Leukocyte Esterase Negative (Negative) Urine Glucose Negative (Negative) Influenza A (Rapid) Negative (Negative) Influenza B (Rapid) Negative (Negative) Diagnostic Imaging: Patient Name: RAQUEL REILLY Medical Record#: [id number] Ordering Physician: Jane Orta DO Acct.#: [id number] : 1960 Age: 57 Sex: F Location: [address] [place] [address]/[employer] Exam Date: 08/20/17 1034 ADM Status: ADM Emir Order Information: CTA CHEST Accession Number: [id number] CPT: 82340 HISTORY: Cough, pneumonia, evaluate for PE COMPARISONS: None TECHNIQUE: Multiple contiguous axial CT scans of the chest were obtained without intravenous contrast. Coronal and sagittal multiplanar reformations are also submitted for review. FINDINGS: NECK AND THYROID: The lower neck and thyroid are unremarkable. CHEST WALL: There is no lower cervical, axillary, or supraclavicular lymphadenopathy by size criteria. HEART AND PERICARDIUM: The heart is unremarkable. AORTA AND PULMONARY VASCULATURE: There is no pulmonary arterial filling defect to suggest pulmonary embolism. There is no linear filling defect within the aorta to suggest aortic dissection. MEDIASTINUM: There is an enlarged subcarinal lymph node measuring up to 2.4 cm in short axis. KASIA: There are enlarged bilateral hilar lymph nodes measuring up to 1.8 cm in short axis. AIRWAY AND ESOPHAGUS: The airway is unremarkable, without endobronchial filling defect. The esophagus is grossly normal. LUNG PARENCHYMA: There is biapical centrilobular emphysematous change. There is multifocal centrilobular nodularity within all lobes. There is no focal consolidation of the left upper lobe PLEURA: There are small bilateral pleural effusions. UPPER ABDOMEN: The upper abdomen is unremarkable. BONES AND SOFT TISSUES: Degenerative changes are noted OTHER: None. IMPRESSION: 1. NO PULMONARY ARTERIAL FILLING DEFECT TO SUGGEST PULMONARY EMBOLISM. 2. THERE IS MULTIFOCAL CONSOLIDATION OF THE LEFT UPPER LOBE WITH MULTIFOCAL CENTRILOBULAR NODULARITY THROUGHOUT BOTH LUNGS, SUGGESTIVE OF AN INFLAMMATORY OR INFECTIOUS PROCESS. AIRWAY SPREAD OF NEOPLASM IS ALSO WITHIN THE DIFFERENTIAL. RECOMMEND FOLLOW-UP UNTIL RESOLUTION TO EXCLUDE UNDERLYING PULMONARY PARENCHYMAL PATHOLOGY. 3. HILAR AND MEDIASTINAL LYMPHADENOPATHY. 4. SMALL BILATERAL PLEURAL EFFUSIONS. 5. EMPHYSEMA <Electronically signed by Deng Coe MD in [place]> 08/20/17 1238 Dictated By: Deng Coe MD Dictated Date/Time: 08/20/17 1238 Transcribed Date/Time: 08/20/17 1235 Copy to: 1 of 2 Assess/Plan/Problems-Billing Assessment: - Patient Problems (1) Bronchopneumonia Code(s): J18.0 - BRONCHOPNEUMONIA, UNSPECIFIED ORGANISM SNOMED Code(s): 367599783 Comment: - Likely in the setting of tobacco abuse/emphysema as noted on CT scan - Continue ceftriaxone and azithromycin - Add duonebs Q6h scheduled - Add mucinex DM BID - Add flutter valve for increased pulmonary toilet - Trial dulera low dose BID (2) Tobacco abuse Code(s): Z72.0 - TOBACCO USE SNOMED Code(s): 786765946 Comment: - nicotine inhaler PRN - counseled (3) Electrolyte and fluid disorder Code(s): E87.8 - OTH DISORDERS OF ELECTROLYTE AND FLUID BALANCE, NEC SNOMED Code(s): 20224055 Comment: - Responding to NS - One dose Kclor now - Follow lytes in AM (4) Acute electrocardiogram changes Code(s): R94.31 - ABNORMAL ELECTROCARDIOGRAM [ECG] [EKG] SNOMED Code(s): 328605242 Comment: - Likely from increased demand - Initial trop elevated, then normalized - Continue tele Status and Disposition: Remain inpatient
[2017-08-21] MEDS: Albuterol/Ipratropium NEB.SOL* Albuterol 2.5 MG/Ipratropium 0.5 MG 3 ML INH SCH ×2 (17:43→19:42)
[2017-08-21] MEDS: Mometasone/Formoter 100/5 MDI INH SCH (19:43)
[2017-08-21] MEDS ORDERED: Albuterol/Ipratropium NEB.SOL* Albuterol 2.5 MG/Ipratropium 0.5 MG 3 ML INH PRN (19:49)
[2017-08-21] MEDS: GuaiFENesin DM* 5 ML UDC PO PRN (21:39)
[2017-08-22] MEDS: Acetaminophen TAB* 325 MG PO PRN ×2 (04:44→20:06)
[2017-08-22] MEDS: Heparin VIAL(*) 5000 UNITS/ML VIAL (FIVE THOUSAND) SUBCUT SCH ×3 (06:04→23:28)
[2017-08-22 07:22] LABS: ABS Basophils 0 10^3/ul (0-0.2); ABS Eosinophils 0.1 10^3/ul (0-0.6); ABS Lymphocytes 1.7 10^3/ul (1.0-4.8); ABS Neutrophils 5.1 10^3/ul (1.5-7.7); ABS Nucleated RBC 0 10^3/ul; Eosinophil % 1.3 % (0-6); Hematocrit 28 % (35-47); Hemoglobin 9.9 g/dl (12.0-16.0); Lymphocyte % 21.9 % (25-47); Mean Corpuscular HGB Conc 36 g/dl (31-36); Mean Corpuscular Hemoglobin 30 pg (27-31); Mean Corpuscular Volume 84 fL (80-97); Mean Platelet Volume 7.9 um3 (7.4-10.4); Nucleated Red Blood Cells % 0; Platelet Count 246 10^3/ul (150-450); Red Blood Count 3.32 10^6/ul (4.0-5.4); Red Cell Distribution Width 15 % (10.5-15)
[2017-08-22 07:37] LABS: EGFR Non-African American 88.9 (>60)
[2017-08-22] MEDS: Mometasone/Formoter 100/5 MDI INH SCH ×2 (07:49→20:18)
[2017-08-22] MEDS: NS 0.9% 1000 ML* 1,000 ML IV SCH ×2 (07:52→20:07)
[2017-08-22] MEDS: GuaiFENesin DM* 5 ML UDC PO PRN ×2 (10:23→20:06)
[2017-08-22] MEDS: cefTRIAXone 1000 MG SYRINGE IVPB Q24H (in NaCl) IVPB SCH ×2 (10:23)
[2017-08-22] MEDS: Azithromycin IV(*) 500 MG in NS 0.9% 250 ML* 250 ML IVPB SCH (11:08)
--- NOTE | 2017-08-22 18:11 | PN ---
Subjective Date of Service: 08/22/17 Interval History: Patient seen and examined. Better today, states her breathing is improved. No SOB, able to walk around the unit with no distress. Denies fever or chills, no headache, no chest pain. Objective Active Medications: Acetaminophen (Tylenol Tab*) 650 mg PO Q6H PRN PRN Reason: PAIN Last Admin: 08/22/17 04:44 Dose: 650 mg Albuterol/Ipratropium (Duoneb (Albuterol 2.5 Mg/Ipratropium 0.5 Mg)) 1 neb INH Q4H PRN PRN Reason: SOB/WHEEZING Device (Nicotine Mouth Piece*) 1 each INH .USE WITH NICOTROL PRN PRN Reason: CRAVING Guaifenesin/Dextromethorphan (Robitussin Dm*) 10 ml PO Q4H PRN PRN Reason: COUGH Last Admin: 08/22/17 10:23 Dose: 10 ml Heparin Sodium (Porcine) (Heparin Vial(*)) 5,000 units SUBCUT Q8HR [facility] Last Admin: 08/22/17 14:26 Dose: 5,000 units Azithromycin 500 mg/ Sodium (Chloride) 250 mls @ 250 mls/hr IVPB Q24H [facility] Last Admin: 08/22/17 11:08 Dose: 250 mls/hr Sodium Chloride (Ns 0.9% 1000 Ml*) 1,000 mls @ 100 mls/hr IV PER RATE [facility] Last Admin: 08/22/17 07:52 Dose: 100 mls/hr Ceftriaxone Sodium 1,000 mg/ (Sodium Chloride) 10 mls @ 40 mls/hr IVPB Q24H [facility] Last Admin: 08/22/17 10:23 Dose: 40 mls/hr Mometasone Furoate/Formoterol Fumar (Dulera 100/5 Mdi*) 2 puff INH BID [facility] Last Admin: 08/22/17 07:49 Dose: 2 puff Nicotine (Nicotine Inhaler*) 10 mg INH Q2H PRN PRN Reason: CRAVING Tramadol HCl (Ultram*) 50 mg PO Q8H PRN PRN Reason: PAIN Vital Signs - 8 hr 08/22/17 08/22/17 11:40 15:26 Temperature 97.6 F 97.8 F Pulse Rate 68 61 Respiratory 16 18 Rate Blood Pressure 125/77 126/71 (mmHg) O2 Sat by Pulse 97 97 Oximetry Oxygen Devices in Use Now: None Appearance: Alert, NAD Eyes: No Scleral Icterus, PERRLA Ears/Nose/Mouth/Throat: NL Teeth, Lips, Gums, Mucous Membranes Moist Neck: NL Appearance and Movements; NL JVP, Trachea Midline Respiratory: Symmetrical Chest Expansion and Respiratory Effort, - - diminished half up the bases, no wheeze or rhonchi noted Cardiovascular: NL Sounds; No Murmurs; No JVD, RRR, No Edema Extremities: No Edema Neurological: Alert and Oriented x 3, NL Gait Nutrition: Taking PO's Result Diagrams: 08/22/17 07:10 08/22/17 07:10 Additional Lab and Data: Lab Results 08/20/17 08/20/17 08/20/17 Range/Units 08:30 08:30 08:30 WBC 11.2 H (3.5-10.8) 10^3/ul RBC 4.15 (4.0-5.4) 10^6/ul Hgb 11.6 L (12.0-16.0) g/dl Hct 35 (35-47) % MCV 84 (80-97) fL MCH 28 (27-31) pg MCHC 33 (31-36) g/dl RDW 14 (10.5-15) % Plt Count 320 (150-450) 10^3/ul MPV 8.5 (7.4-10.4) um3 Neut % (Auto) 75.5 (38-83) % Lymph % (Auto) 11.8 L (25-47) % [place] % (Auto) 11.6 H (0-7) % Eos % (Auto) 0.5 (0-6) % Baso % (Auto) 0.6 (0-2) % Absolute Neuts (auto) 8.4 H (1.5-7.7) 10^3/ul Absolute Lymphs (auto) 1.3 (1.0-4.8) 10^3/ul Absolute Monos (auto) 1.3 H (0-0.8) 10^3/ul Absolute Eos (auto) 0.1 (0-0.6) 10^3/ul Absolute Basos (auto) 0.1 (0-0.2) 10^3/ul Absolute Nucleated RBC 0 10^3/ul Nucleated RBC % 0.1 INR (Anticoag Therapy) 1.07 H (0.77-1.02) APTT 27.8 (26.0-36.3) seconds D-Dimer, Quantitative 525 H (Less Than 230) ng/mL Sodium 133 L (139-145) mmol/L Potassium 3.2 L (3.5-5.0) mmol/L Chloride 100 L (101-111) mmol/L Carbon Dioxide 21 L (22-32) mmol/L Anion Gap 12 H (2-11) mmol/L BUN 9 (6-24) mg/dL Creatinine 0.74 (0.51-0.95) mg/dL Est GFR ( Amer) 103.7 (>60) Est GFR (Non-Af Amer) 80.6 (>60) BUN/Creatinine Ratio 12.2 (8-20) Glucose 142 H (70-100) mg/dL Hemoglobin A1c (4.0-5.6) % Lactic Acid (0.5-2.0) mmol/L Calcium 8.8 (8.6-10.3) mg/dL Total Bilirubin 0.80 (0.2-1.0) mg/dL AST 18 (13-39) U/L ALT 14 (7-52) U/L Alkaline Phosphatase 68 (34-104) U/L Total Creatine Kinase 263 H (10-223) U/L Troponin I 0.10 H* (<0.04) ng/mL C-Reactive Protein 165.15 H (< 5.00) mg/L B-Natriuretic Peptide ( - 100) pg/mL Total Protein 6.7 (6.4-8.9) g/dL Albumin 3.5 (3.2-5.2) g/dL Globulin 3.2 (2-4) g/dL Albumin/Globulin Ratio 1.1 (1-3) Procalcitonin (<0.6) ng/mL Urine Color Urine Appearance Urine pH (5-9) Ur Specific [place] (1.010-1.030) Urine Protein (Negative) Urine Ketones (Negative) Urine Blood (Negative) Urine Nitrate (Negative) Urine Bilirubin (Negative) Urine Urobilinogen (Negative) Ur Leukocyte Esterase (Negative) Urine Glucose (Negative) Influenza A (Rapid) (Negative) Influenza B (Rapid) (Negative) 08/20/17 08/20/17 08/20/17 Range/Units 08:30 08:30 08:30 WBC (3.5-10.8) 10^3/ul RBC (4.0-5.4) 10^6/ul Hgb (12.0-16.0) g/dl Hct (35-47) % MCV (80-97) fL MCH (27-31) pg MCHC (31-36) g/dl RDW (10.5-15) % Plt Count (150-450) 10^3/ul MPV (7.4-10.4) um3 Neut % (Auto) (38-83) % Lymph % (Auto) (25-47) % Pickett % (Auto) (0-7) % Eos % (Auto) (0-6) % Baso % (Auto) (0-2) % Absolute Neuts (auto) (1.5-7.7) 10^3/ul Absolute Lymphs (auto) (1.0-4.8) 10^3/ul Absolute Monos (auto) (0-0.8) 10^3/ul Absolute Eos (auto) (0-0.6) 10^3/ul Absolute Basos (auto) (0-0.2) 10^3/ul Absolute Nucleated RBC 10^3/ul Nucleated RBC % INR (Anticoag Therapy) (0.77-1.02) APTT (26.0-36.3) seconds D-Dimer, Quantitative (Less Than 230) ng/mL Sodium (139-145) mmol/L Potassium (3.5-5.0) mmol/L Chloride (101-111) mmol/L Carbon Dioxide (22-32) mmol/L Anion Gap (2-11) mmol/L BUN (6-24) mg/dL Creatinine (0.51-0.95) mg/dL Est GFR ( Amer) (>60) Est GFR (Non-Af Amer) (>60) BUN/Creatinine Ratio (8-20) Glucose (70-100) mg/dL Hemoglobin A1c (4.0-5.6) % Lactic Acid 0.9 (0.5-2.0) mmol/L Calcium (8.6-10.3) mg/dL Total Bilirubin (0.2-1.0) mg/dL AST (13-39) U/L ALT (7-52) U/L Alkaline Phosphatase (34-104) U/L Total Creatine Kinase (10-223) U/L Troponin I (<0.04) ng/mL C-Reactive Protein (< 5.00) mg/L B-Natriuretic Peptide 201 H ( - 100) pg/mL Total Protein (6.4-8.9) g/dL Albumin (3.2-5.2) g/dL Globulin (2-4) g/dL Albumin/Globulin Ratio (1-3) Procalcitonin 0.1 (<0.6) ng/mL Urine Color Urine Appearance Urine pH (5-9) Ur Specific [place] (1.010-1.030) Urine Protein (Negative) Urine Ketones (Negative) Urine Blood (Negative) Urine Nitrate (Negative) Urine Bilirubin (Negative) Urine Urobilinogen (Negative) Ur Leukocyte Esterase (Negative) Urine Glucose (Negative) Influenza A (Rapid) (Negative) Influenza B (Rapid) (Negative) 08/20/17 08/20/17 08/20/17 Range/Units 08:30 09:02 10:40 WBC (3.5-10.8) 10^3/ul RBC (4.0-5.4) 10^6/ul Hgb (12.0-16.0) g/dl Hct (35-47) % MCV (80-97) fL MCH (27-31) pg MCHC (31-36) g/dl RDW (10.5-15) % Plt Count (150-450) 10^3/ul MPV (7.4-10.4) um3 Neut % (Auto) (38-83) % Lymph % (Auto) (25-47) % Pickett % (Auto) (0-7) % Eos % (Auto) (0-6) % Baso % (Auto) (0-2) % Absolute Neuts (auto) (1.5-7.7) 10^3/ul Absolute Lymphs (auto) (1.0-4.8) 10^3/ul Absolute Monos (auto) (0-0.8) 10^3/ul Absolute Eos (auto) (0-0.6) 10^3/ul Absolute Basos (auto) (0-0.2) 10^3/ul Absolute Nucleated RBC 10^3/ul Nucleated RBC % INR (Anticoag Therapy) (0.77-1.02) APTT (26.0-36.3) seconds D-Dimer, Quantitative (Less Than 230) ng/mL Sodium (139-145) mmol/L Potassium (3.5-5.0) mmol/L Chloride (101-111) mmol/L Carbon Dioxide (22-32) mmol/L Anion Gap (2-11) mmol/L BUN (6-24) mg/dL Creatinine (0.51-0.95) mg/dL Est GFR ( Amer) (>60) Est GFR (Non-Af Amer) (>60) BUN/Creatinine Ratio (8-20) Glucose (70-100) mg/dL Hemoglobin A1c 6.0 H (4.0-5.6) % Lactic Acid (0.5-2.0) mmol/L Calcium (8.6-10.3) mg/dL Total Bilirubin (0.2-1.0) mg/dL AST (13-39) U/L ALT (7-52) U/L Alkaline Phosphatase (34-104) U/L Total Creatine Kinase (10-223) U/L Troponin I (<0.04) ng/mL C-Reactive Protein (< 5.00) mg/L B-Natriuretic Peptide ( - 100) pg/mL Total Protein (6.4-8.9) g/dL Albumin (3.2-5.2) g/dL Globulin (2-4) g/dL Albumin/Globulin Ratio (1-3) Procalcitonin (<0.6) ng/mL Urine Color Yellow Urine Appearance Clear Urine pH 5.0 (5-9) Ur Specific [place] 1.004 L (1.010-1.030) Urine Protein Negative (Negative) Urine Ketones Negative (Negative) Urine Blood Negative (Negative) Urine Nitrate Negative (Negative) Urine Bilirubin Negative (Negative) Urine Urobilinogen Negative (Negative) Ur Leukocyte Esterase Negative (Negative) Urine Glucose Negative (Negative) Influenza A (Rapid) Negative (Negative) Influenza B (Rapid) Negative (Negative) Microbiology and Other Data: Microbiology 08/21/17 12:00 Gram Stain - Final Sputum Diagnostic Imaging: Patient Name: RAQUEL REILLY Medical Record#: [id number] Ordering Physician: Jane Orta DO Acct.#: [id number] : 1960 Age: 57 Sex: F Location: [address] [place] [address]/[employer] Exam Date: 08/20/17 1034 ADM Status: ADM Emir Order Information: CTA CHEST Accession Number: [id number] CPT: 39151 HISTORY: Cough, pneumonia, evaluate for PE COMPARISONS: None TECHNIQUE: Multiple contiguous axial CT scans of the chest were obtained without intravenous contrast. Coronal and sagittal multiplanar reformations are also submitted for review. FINDINGS: NECK AND THYROID: The lower neck and thyroid are unremarkable. CHEST WALL: There is no lower cervical, axillary, or supraclavicular lymphadenopathy by size criteria. HEART AND PERICARDIUM: The heart is unremarkable. AORTA AND PULMONARY VASCULATURE: There is no pulmonary arterial filling defect to suggest pulmonary embolism. There is no linear filling defect within the aorta to suggest aortic dissection. MEDIASTINUM: There is an enlarged subcarinal lymph node measuring up to 2.4 cm in short axis. KASIA: There are enlarged bilateral hilar lymph nodes measuring up to 1.8 cm in short axis. AIRWAY AND ESOPHAGUS: The airway is unremarkable, without endobronchial filling defect. The esophagus is grossly normal. LUNG PARENCHYMA: There is biapical centrilobular emphysematous change. There is multifocal centrilobular nodularity within all lobes. There is no focal consolidation of the left upper lobe PLEURA: There are small bilateral pleural effusions. UPPER ABDOMEN: The upper abdomen is unremarkable. BONES AND SOFT TISSUES: Degenerative changes are noted OTHER: None. IMPRESSION: 1. NO PULMONARY ARTERIAL FILLING DEFECT TO SUGGEST PULMONARY EMBOLISM. 2. THERE IS MULTIFOCAL CONSOLIDATION OF THE LEFT UPPER LOBE WITH MULTIFOCAL CENTRILOBULAR NODULARITY THROUGHOUT BOTH LUNGS, SUGGESTIVE OF AN INFLAMMATORY OR INFECTIOUS PROCESS. AIRWAY SPREAD OF NEOPLASM IS ALSO WITHIN THE DIFFERENTIAL. RECOMMEND FOLLOW-UP UNTIL RESOLUTION TO EXCLUDE UNDERLYING PULMONARY PARENCHYMAL PATHOLOGY. 3. HILAR AND MEDIASTINAL LYMPHADENOPATHY. 4. SMALL BILATERAL PLEURAL EFFUSIONS. 5. EMPHYSEMA <Electronically signed by Deng Coe MD in [place]> 08/20/17 1238 Dictated By: Deng Coe MD Dictated Date/Time: 08/20/17 1238 Transcribed Date/Time: 08/20/17 1235 Copy to: 1 of 2 Assess/Plan/Problems-Billing Assessment: This is a 57 year old female patient with hx of smoking, admitted for CAP. - Patient Problems (1) Bronchopneumonia Code(s): J18.0 - BRONCHOPNEUMONIA, UNSPECIFIED ORGANISM SNOMED Code(s): 255064329 Comment: - Likely in the setting of tobacco abuse/emphysema as noted on CT scan - Continue ceftriaxone and azithromycin - Responding well to duonebs Q6h scheduled, mucinex DM BID - Continue flutter valve for increased pulmonary toilet - Continue dulera low dose BID and at discharge (2) Tobacco abuse Code(s): Z72.0 - TOBACCO USE SNOMED Code(s): 507315348 Comment: - nicotine inhaler PRN - counseled (3) Electrolyte and fluid disorder Code(s): E87.8 - OTH DISORDERS OF ELECTROLYTE AND FLUID BALANCE, NEC SNOMED Code(s): 26292672 Comment: - Responding to NS and kclor supplementation - K normal today, sodium improving (4) Acute electrocardiogram changes Code(s): R94.31 - ABNORMAL ELECTROCARDIOGRAM [ECG] [EKG] SNOMED Code(s): 093405226 Comment: - Likely from increased demand - Initial trop elevated, then normalized - No ectopy on tele last 24 hours Status and Disposition: Remain inpatient, eval for transition to PO antibiotics if she continues to improve. Recommend outpatient f/u with Dr. Garcia to evaluate CT chest findings after infection is clear and for emphysema management.
[2017-08-23] MEDS: NS 0.9% 1000 ML* 1,000 ML IV SCH (06:22)
[2017-08-23] MEDS: Heparin VIAL(*) 5000 UNITS/ML VIAL (FIVE THOUSAND) SUBCUT SCH (06:22)
[2017-08-23 06:30] LABS: ABS Basophils 0 10^3/ul (0-0.2); ABS Eosinophils 0.2 10^3/ul (0-0.6); ABS Lymphocytes 1.8 10^3/ul (1.0-4.8); ABS Monocytes 0.8 10^3/ul (0-0.8); ABS Neutrophils 4.7 10^3/ul (1.5-7.7); ABS Nucleated RBC 0 10^3/ul; Hematocrit 31 % (35-47); Hemoglobin 10.5 g/dl (12.0-16.0); Lymphocyte % 24.1 % (25-47); Mean Corpuscular HGB Conc 34 g/dl (31-36); Mean Corpuscular Hemoglobin 29 pg (27-31); Mean Corpuscular Volume 85 fL (80-97); Mean Platelet Volume 7.7 um3 (7.4-10.4); Nucleated Red Blood Cells % 0; Platelet Count 281 10^3/ul (150-450); Red Blood Count 3.69 10^6/ul (4.0-5.4); Red Cell Distribution Width 15 % (10.5-15); White Blood Count 7.5 10^3/ul (3.5-10.8)
[2017-08-23] MEDS: Acetaminophen TAB* 325 MG PO PRN (06:30)
[2017-08-23] MEDS: GuaiFENesin DM* 5 ML UDC PO PRN (06:30)
[2017-08-23 06:53] LABS: EGFR Non-African American 83.2 (>60)
[2017-08-23] MEDS: Mometasone/Formoter 100/5 MDI INH SCH (07:49)
[2017-08-23] MEDS: cefTRIAXone 1000 MG SYRINGE IVPB Q24H (in NaCl) IVPB SCH ×2 (09:24)
[2017-08-23 09:31] VITALS: BP 128/78
--- NOTE | 2017-08-24 02:14 | DS ---
DISCHARGE SUMMARY: DATE OF ADMISSION: 08/20/17 DATE OF DISCHARGE: 08/23/17 PRINCIPAL DISCHARGE DIAGNOSES: 1. Community-acquired pneumonia. 2. Hilar mediastinal lymphadenopathy. 3. Lung nodules. 4. Suspected new diagnosis of chronic obstructive pulmonary disease. PHYSICAL EXAMINATION AT THE TIME OF DISCHARGE: Heart rate 60, respiratory rate 18, temperature 98.5, blood pressure 128/78, pulse ox 94% on room air. General : Alert, well-appearing female, in no distress. She is able to speak in full sentences and lie flat without shortness of breath. HEENT: No pharyngeal exudates or erythema. Moist mucosa. Neck: No JVP. No cervical or supraclavicular lymphadenopathy. Chest: Regular rate and rhythm. No murmurs. PMI nondisplaced. Lungs are clear bilaterally. No wheezing, rales, or rhonchi. Abdomen: Soft, nontender, nondistended. Extremities: No edema. No rashes. No ulcers. She has some varicose veins. HOSPITAL COURSE BY PROBLEM: 1. Community-acquired pneumonia. A CT angiogram obtained at admission showed a left upper lobe consolidation. A sputum culture returned as normal annabel and a Legionella antigen and Strep pneumo antigen were negative. Blood cultures remained negative throughout her hospitalization. She was treated with ceftriaxone and azithromycin. At the time of discharge, she does not have prescription coverage, so case management arranged for an urgent medication voucher and I am discharging her with azithromycin. Of note, she has a history of allergy to erythromycin; however, she tolerated azithromycin during her admission well and without any side effects. 2. Hilar and mediastinal lymphadenopathy. This is likely reactive in nature given her suspected infectious process. However, these findings were discussed at length with her and the need for a followup CT to exclude malignancy. She understands this and agrees to follow up with PCP and Dr. Garcia as soon as her insurance is activated. I have given her the phone number for Dr. Garcia's office and also she has been arranged for a PCP followup with Cinthia Martin. 3. Pulmonary nodules. As above, these are likely inflammatory or infectious in nature; however, these findings were discussed with Ms. Coffey and I emphasized clearly the importance of following up with a CT scan in 6 weeks to ensure resolution to rule out malignancy. She expresses understanding of these findings. 4. Tobacco abuse. She was counseled on tobacco cessation and expresses readiness to quit. 5. Suspected emphysema. Again, Ms. Coffey has a long history of tobacco abuse and has not seen a doctor in about 4 years. She had findings on her CT scan suspicious for emphysema. She is being discharged with an albuterol inhaler because that is the only option on the urgent voucher list. She needs followup with Dr. Garcia and PFTs and likely better COPD control or management. DISPOSITION: Ms. Coffey is being discharged to home on 08/23/17. She has no ambulatory oxygen requirement and I am discharging her on azithromycin and albuterol due to limitations with the urgent RX voucher form options; however, she agrees to follow up with [employer], Mario and Dr. Garcia for further workup of her COPD, lymphadenopathy, and lung nodules and routine health maintenance and age- appropriate cancer screenings. She is instructed to return to the emergency department with any fevers, chills, chest pain, cough, sputum, or other abnormal symptoms. [id number]/[facility] #: [id number] MISSY
== END 2017-08-23 13:05 | disposition home or self-care (01) | DRG 194 ==
LOC: ED 08:02 → MEDTELE 10:46 → OBSVTOIN 08-21 09:00
PROVIDERS: ADMIT Hospitalist; ATTEND Internal Medicine
DX: J18.0 Bronchopneumonia, unspecified organism (principal); E87.1 Hypo-osmolality and hyponatremia; F17.210 Nicotine dependence, cigarettes, uncomplicated; E87.6 Hypokalemia; R74.8 Abnormal levels of other serum enzymes; G43.909 Migraine, unspecified, not intractable, without status migrainosus; J43.9 Emphysema, unspecified; R94.31 Abnormal electrocardiogram [ECG] [EKG]; R59.0 Localized enlarged lymph nodes; R91.8 Other nonspecific abnormal finding of lung field; Z98.51 Tubal ligation status; Z88.1 Allergy status to other antibiotic agents; Z88.0 Allergy status to penicillin; Z87.01 Personal history of pneumonia (recurrent); Z82.49 Family history of ischemic heart disease and other diseases of the circulatory system; Z83.3 Family history of diabetes mellitus; Z80.9 Family history of malignant neoplasm, unspecified
CPT/HCPCS: 36415; 71045; 71275; 80048; 80053; 81003; 82550; 83036; 83605; 83880; 84145; 84484; 85025; 85027; 85379; 85610; 85730; 86140; 87040; 87070; 87205; 87502; 87899; 93005; 94640; 99284; 99406; A9270-GY; G0378; J0456; J0696; J1644; Q9967